=== PATIENT | female | born 1995 | race Caucasian/White ===

== ENCOUNTER 2019-03-08 02:48 | Observation (INO) ==
[2019-03-08 03:38] LABS: Amphetamine Screen,Urine Negative ng/mL (Cutoff=1000); Barbiturate Screen,Urine Negative ng/mL (Cutoff=200); Benzodiazepines Screen,Urine Negative ng/mL (Cutoff=200); Cannabinoid Screen,Urine Positive ng/mL (Cutoff = 50); Cocaine Screen,Urine Negative ng/mL (Cutoff= 300); Opiate Screen,Urine Negative ng/mL (Cutoff=300); Phencyclidine Screen,Urine Negative ng/mL (Cutoff=25)
[2019-03-08 03:43] LABS: Bilirubin,Urine Negative (Negative); Blood,Urine Small (Negative); Clarity,Urine Turbid (Clear); Color,Urine Yellow (Yellow); Glucose,Urine (UA) Normal (Normal); Ketones,Urine 40 mg/dL (Negative); Leukocyte Esterase,Urine Moderate (Negative); Nitrite,Urine Negative (Negative); Protein,Urine 30 mg/dL (Neg-Trace); Specific Gravity,Urine 1.023 (1.010-1.025); Urobilinogen,Urine Normal (Normal)
[2019-03-08 03:44] LABS: Bacteria,Urine Moderate per hpf (None-Few); RBC,Urine 0-3 per hpf (0-3); Squamous Epithelial Cell,Urine Many per lpf (None-Few); WBC,Urine 0-3 per hpf (0-3)
--- NOTE | 2019-03-08 04:15 | OB/GYN Progress Note ---
Date of Encounter: 03/08/19 Time of Encounter: 04:13 - Assessment and Plan (1) 20 weeks gestation of Current Visit: Yes Status: Acute (2) UTI (urinary tract infection) in in second trimester Current Visit: Yes Status: Acute Cervix closed, UA indicative of UTI discharged home with Macrobid twice a day 5 days. Patient has follow-up with Dr. Musa this week. Subjective - Subjective Interval history: 20+ weeks gestation presents to triage with complaints of abdominal and back pain. Patient states around 1:00 today she started to have intermittent clenching stabbing lower abdominal and back pain radiating from her back into her abdomen. Patient has been having frequency and urgency with urination Antepartum ROS: movement normal, contractions, no loss of fluid, no vaginal bleeding Objective - Exam FHR: auscultation normal FHR comments: Heart tones present per RN Abdomen: Present: soft, gravid Cervical dilation: Closed/high Comments: Negative CVA tenderness - Labs Labs: Abnormal lab results Ur Specimen Adequacy See below A 03/08/19 02:55 Turbid (Clear) A 03/08/19 02:55 30 mg/dL (Neg-Trace) H 03/08/19 02:55 40 mg/dL (Negative) H 03/08/19 02:55 Small (Negative) H 03/08/19 02:55 Ur Leukocyte Esterase Moderate (Negative) H 03/08/19 02:55 Ur Squamous Epith Cells Many per lpf (None-Few) H 03/08/19 02:55 Moderate per hpf (None-Few) H 03/08/19 02:55 Ur Culture Indicated? YES (NO) A 03/08/19 02:55 U Marijuana (THC) Screen Positive ng/mL (Cutoff = 50) H 03/08/19 02:55
== END 2019-03-08 04:20 | disposition home or self-care (01) ==
LOC: 1NENULAB
PROVIDERS: ADMIT Advanced Practice Midwife; ATTEND Advanced Practice Midwife